=== PATIENT | male | born 1935 | race Caucasian/White ===

== ENCOUNTER 2017-09-29 08:25 | Emergency (ER) | payer MEDICARE, OTHER, SELFPAY ==
[2017-09-29 08:37] VITALS: BP 179/88; PULSE 95; RESP 14; TEMP 37.3; O2SAT 95
--- NOTE | 2017-09-29 08:47 | ED.GENADUL_ITS ---
Disposition Clinical Impression: Epistaxis Disposition: HOME Condition: Good Instructions: Nosebleed (ED) Additional Instructions: If you do have recurrence of bleeding please apply pressure to the nose. If the bleeding does not resolve after 15-20 minutes please return immediately for reevaluation. If you notice any worsening of your symptoms, or any new symptoms such as vomiting, diarrhea, fever, chills, shortness of breath, chest pain, numbness, weakness, or fainting , please return immediately to the emergency department for reevaluation. Please follow up with your primary care provider as soon as possible for reassessment and reevaluation. As always, it was a pleasure participating in your medical care today. Referrals: Cami Burleson MD, [place] [Primary Care Provider] - Medical Decision Making - Medical Decision Making This is an 82-year-old male who takes aspirin who bumped his nose on a bureau while getting out of bed. There is a mild trauma however he had some notable bleeding after this event. It occurred 3 hours prior to arrival. Due to continued mild bleeding they did come to the ER for evaluation however on presentation the bleeding had stopped. Currently the patient demonstrates no signs of severe trauma, no deformity of the nose, no active bleeding or signs of airway compromise. Will have an observation period of 15-20 minutes, and if there continues to be no bleeding and the patient will be discharged home with close follow-up. With no signs of hypotension, notable tachycardia, or signs of volume depletion I feel that he would be stable for discharge home. After an observation. There is no continued bleeding. Patient will be discharged home with close follow-up. We discussed red flags first return the patient family understand. I have extensively reviewed the treatment plan and discharge instructions with the patient. I have addressed all patient concerns at this time. The patient was made aware of what symptoms to monitor for that would warrant a return to the emergency department. Discussed the plan with the patient, they demonstrate verbal understanding and agreement with our assessment and plan at this time. History of Present Illness - General Chief complaint: Epistaxis Stated complaint: BLOODY NOSE Time Seen by Provider: 09/29/17 08:45 - History of Present Illness Initial comments: This is an 82-year-old male with a past medical history of Parkinson's , diabetes, hypertension, hypercholesterol and past surgical history of an appendectomy. He takes a daily aspirin. He presents today for evaluation of right-sided nosebleed. 3 hours prior to arrival he bumped the right side of his nose on a cabinet while getting up from bed, he had notable bleeding after this. They packed the nose with cotton swabs, and applied pressure. They came to the ER for further evaluation however upon arrival the bleeding had completely stopped. The patient denies coughing up any clots or the sensation of swallowing blood. He denies any headache, or loss of consciousness. He denies any pain in his nose. Patient denies any chest pain shortness of breath vision changes vomiting diarrhea numbness tingling or weakness. He has no other complaints at this time he denies any pertinent family history. He denies any IV or illicit drug use. - Related Data Allopurinol 1 tab PO DAILY tab-cap 07/13/12 Doxazosin Mesylate [Cardura] 1 tab PO HS tab-cap 07/13/12 Metformin HCl 1 tab PO BID tab-cap 07/13/12 Aspirin [Aspir 81] 1 tab PO DAILY 08/02/13 Finasteride 1 tab PO DAILY 08/02/13 Simvastatin 40 mg PO DAILY #90 tab-cap 09/09/14 Carvedilol [Coreg] 0.5 tab PO BID #180 tab-cap 09/26/14 Losartan [Cozaar] 100 mg PO DAILY #90 tab-cap 09/26/14 Carbidopa/Levodopa CR [Sinemet Cr 50/200 Tablet] 0 PO TID #450 tab-cap 07/05/17 Nystatin Powder 60 GM [Mycostatin Powder] 0 TP BID #60 gm 07/05/17 Ducolax PO DAILY 07/21/17 Carbidopa/Levodopa [Carbidopa-Levo 25-100 mg Odt] 1 each PO BID 08/30/17 Indica 08/30/17 Indica 1 drop SL BID 08/30/17 Cyclobenzaprine HCl 1 tab PO TID PRN #30 tab-cap 09/08/17 Allergies Allergy/AdvReac Type Severity Reaction Status Date / Time No Known Allergies Allergy Unverified 09/29/17 08:47 Review of Systems Other: 10 point review of systems was performed, pertinent positives and negatives are noted in the history of present illness. General Exam - Other Other exam information: 1.Const: Well-nourished, Well-developed, appearing stated age 2.Eyes: PERRL, no conjunctival injection, and symmetrical lids. 3.ENT: Atraumatic external nose and ears. Moist MM. Neck: Symmetric, trachea midline, No thyromegaly. There is no evidence of raccoon eyes, rome sign, CSF rhinorrhea, mastoid tenderness, cranial crepitus, hemotympanum, exophthalmos , or hyphema. Patient demonstrates intact dentition with no signs of tooth avulsion or fracture, no signs of jaw deformity, no evidence of a LeFort's fracture, with an intact palate, nose and orbital region. There is no evidence of a nasal septal hematoma. No proptosis. Jaw closes symmetrically. Airway is clear. Patient does demonstrate a small erythematous spot on the right side of his nose, and just 2 cm distal to the nasal bridge. Evaluation of the nose itself demonstrates no bleeding, no deformity. No tenderness on palpation. No blood in the posterior oropharynx. No signs of airway compromise. No active bleeding. 4.CVS: +S1/S2, No murmurs or gallops. Peripheral pulses 2+ and equal in all extremities. Brisk capillary refill in all extremities. 5.RESP: Unlabored respiratory effort. Clear to auscultation bilaterally. No wheezes rales or rhonchi 6.GI: Soft, Nontender/Nondistended, No hepatosplenomegaly. No guarding or rebound. 7.MSK: Normocephalic/Atraumatic, Extremities w/o deformity or ttp No cyanosis or clubbing, Normal movement of all extremities 8.Skin: Warm, Dry. No rashes or lesions. 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 Sensation grossly intact, no focal neurologic deficits. 10.Psych: (AAO) x3. Appropriate mood and affect Course Vital Signs - 24 hr 09/29/17 08:37 Temperature 37.3 C Pulse 95 H Respiratory 14 Rate Blood Pressure 179/88 Pulse Oximetry 95
== END 2017-09-29 09:19 | disposition home or self-care (01) ==
PROVIDERS: Emergency Provider Student in an Organized Health Care Education/Training Program; PCP Family Medicine
DX: R04.0 Epistaxis (principal); W22.8XXA Striking against or struck by other objects, initial encounter; E11.9 Type 2 diabetes mellitus without complications; Z79.84 Long term (current) use of oral hypoglycemic drugs; I10 Essential (primary) hypertension; G20 Parkinson's disease
CPT/HCPCS: 99281

== ENCOUNTER 2017-10-08 14:22 | Emergency (ER) | payer MEDICARE, OTHER, SELFPAY ==
[2017-10-08] VITALS (8 sets, daily range): BP systolic 143–175; BP diastolic 82–97; PULSE 75–80; RESP 15–20; TEMP 36.7; O2SAT 94–97
--- NOTE | 2017-10-08 14:29 | DI.RPTCT_ITS ---
SYMPTOMS/DIAGNOSIS: SPEECH DIFFICULTIES NONCONTRAST HEAD CT: There is mild to moderate atrophy consistent with the patient's age. There is an area of CSF attenuation in the right basal ganglia which could represent a diverticulum. No intracranial hemorrhage, mass or acute infarct is seen. The ventricles are normal in size. No skull fracture is seen. There is mucosal thickening at the floors of both maxillary sinuses. The mastoid air cells appear clear. IMPRESSION: No acute abnormality.
--- NOTE | 2017-10-08 14:31 | ED.GENADUL ---
Disposition Clinical Impression: Confusion, Difficulty with speech Disposition: HOME Condition: Stable Instructions: Acute Delirium (ED) Additional Instructions: follow up with your primary care provider this week if you have weakness on one side of the body, changes in vision, chest pain or difficulty breathing return to the emergency department Medical Decision Making - Lab Data Results reviewed for labs ordered during visit: Yes - EKG Data -: EKG Interpreted by Me EKG shows normal: sinus rhythm, ST-T waves Rate: normal 10/08/17 14:40 left axis, left bundle branch block - Radiology Data Radiology results: report reviewed, image reviewed - Medical Decision Making Patient here with confusion, speech findings difficulty and mild dysarthria that was noticed upon waking up from nap. given last known normal was 10am and is 4.5 hours from last known normal is not tpa candidate. Will obtian CT head and also CTA to eval for possible dissection vs thrombus, and evaluate for electrolyte abnormalities pt is now at his baseline, without any speech problems. Remains stable. Is now ambulating using a walker at his baseline. labs and imaging show no acute findigns, can't exclude carotid stenosis per report. He remains at his baseline. Unclear if this was moementary confusion after waking up or TIA. Recommended observation admission for TIA? but patient and family declined at this time and he has capacity to make his own decisions. Will d/c home and return precutions given - Differential Diagnosis cva, tia, uti, electrolyte abnormality, transient global amenesia History of Present Illness - General Stated complaint: UNKNOWN Time Seen by Provider: 10/08/17 14:23 Source: family Mode of arrival: EMS Limitations: altered mental status - History of Present Illness Initial comments: 82 yo male with hx of parkinson's, htn, who comes in with family for altered speech and altered mental status. The states that he woke up this morning and seemed to be in his usual state of health. He took a nap around 10am and then his went to wake him and he was confused and had incomprehensible speech so they drove him here. the patient is not sure what time of the day is and is slow to respond with slight slurring of words. He has no focal motor or sensation deficits, no facial droops. He thinks it is november. his NIH score on my exam is 3 (1 for dysarthria,, 1 for mild to moderate aphasia, 1 for not knowing month) MD Complaint: confusion -: unknown Improves with: none Worsens with: none Treatments Prior to Arrival: none - Related Data Allopurinol 1 tab PO DAILY tab-cap 07/13/12 Doxazosin Mesylate [Cardura] 1 tab PO HS tab-cap 07/13/12 Metformin HCl 1 tab PO BID tab-cap 07/13/12 Aspirin [Aspir 81] 1 tab PO DAILY 08/02/13 Finasteride 1 tab PO DAILY 08/02/13 Simvastatin 40 mg PO DAILY #90 tab-cap 09/09/14 Carvedilol [Coreg] 0.5 tab PO BID #180 tab-cap 09/26/14 Losartan [Cozaar] 100 mg PO DAILY #90 tab-cap 09/26/14 Carbidopa/Levodopa CR [Sinemet Cr 50/200 Tablet] 0 PO TID #450 tab-cap 07/05/17 Nystatin Powder 60 GM [Mycostatin Powder] 0 TP BID #60 gm 07/05/17 Ducolax PO DAILY 07/21/17 Carbidopa/Levodopa [Carbidopa-Levo 25-100 mg Odt] 1 each PO BID 08/30/17 Indica 08/30/17 Indica 1 drop SL BID 08/30/17 Allergies Allergy/AdvReac Type Severity Reaction Status Date / Time No Known Allergies Allergy Unverified 10/08/17 14:39 Review of Systems Constitutional: denies: fever ENT: epistaxis Respiratory: denies: shortness of breath Cardiovascular: denies: chest pain Gastrointestinal: denies: abdominal pain, nausea, vomiting Neurological: denies: headache Comment: All other systems reviewed and negative Past Medical History - Past Medical History Medical history: hypertension parkinson's - Social History Alcohol use: none Drug use: none General Exam - General Limitations: altered mental status General appearance: alert, in no apparent distress - Head Head exam: Present: atraumatic - Eye Eye exam: Present: normal apperance, PERRL, EOMI - ENT ENT exam: Present: mucous membranes moist - Neck Neck exam: Present: normal inspection - Respiratory Respiratory exam: Absent: respiratory distress - Cardiovascular Cardiovascular Exam: Present: regular rate - GI/Abdominal GI/Abdominal exam: Present: soft. Absent: tenderness - Neurological Exam Neurological exam: Present: alert, other (see hpi) - Psychiatric Psychiatric exam: Present: normal affect - Skin Skin exam: Present: warm
--- NOTE | 2017-10-08 14:33 | DI.RPTCT_ITS ---
SYMPTOMS/DIAGNOSIS: STROKE LIKE SYMPTOMS CTA OF THE HEAD AND NECK: CT angiography was performed with multi slice acquisition and multi planar and 3D reconstruction. The exam is somewhat limited by motion. The vessels are well opacified. There is no significant carotid or vertebral stenosis. The [place] vasculature appears intact. No occlusion, significant stenosis or aneurysm is seen. Degenerative changes are seen in the cervical spine. IMPRESSION: No evidence of significant stenosis, dissection or occlusion in the head or neck. No evidence of aneurysm.
[2017-10-08 14:43] LABS: Abs Immature Grans 0.05 k/cumm (0.0-0.09); Absolute Basophil Count 0.02 k/cumm (0.0-0.2); Absolute Eosinophil Count 0.08 k/cumm (0.0-0.7); Absolute Lymphocyte Count 1.11 k/cumm (1.2-3.4); Absolute Monocyte Count 0.66 k/cumm (0.11-0.7); Absolute Neutrophil Count 4.58 k/cumm (1.2-6.7); Basophils % 0.3; Eosinophils % 1.2; HCT 39.5 % (40.0-50.0); HGB 13.3 g/dL (13.5-17.5); Immature Grans % 0.8; Lymphocytes % 17.1; Mean Corp. HGB Concentration 33.7 g/dL (32.0-36.0); Mean Corpuscular Hemoglobin 31.1 pg (27.0-33.0); Mean Corpuscular Volume 92.5 fL (80-95); Mean Platelet Volume 10.9 fL (8.0-11.0); Monocytes % 10.2; Neutrophils % 70.4; Platelet Count 224 x1000/uL (130-400); RBC 4.27 m/cumm (4.50-6.00); RBC Distribution Width 12.8 % (11.8-14.1)
[2017-10-08 14:52] LABS: INR 1.1 (1.0-3.5); Prothrombin Time 10.6 sec (9.3-10.8)
[2017-10-08 14:57] LABS: ALT 10 U/L (12-78); AST 22 U/L (15-37); Albumin 3.9 g/dL (3.4-5.0); Alkaline Phosphatase 78 U/L (46-116); Anion Gap 8.1 mmol/L (3-11); BUN 26 mg/dL (7-18); Bilirubin, Total 0.3 mg/dL (0.2-1.0); CO2 28.9 mmol/L (21.0-32.0); CREATININE 1.22 mg/dL (0.70-1.30); Calcium 9.2 mg/dL (8.5-10.1); Chloride 103 mmol/L (98-107); Estimated GFR 57.15 (mL/min/1.73m2); Glucose 88 mg/dL (70-100); Magnesium 1.9 mg/dL (1.8-2.4); Sodium 140 mmol/L (136-145); Total Protein 8.4 g/dL (6.4-8.2)
[2017-10-08 14:59] LABS: Troponin I < 0.02 ng/mL (0.00-0.06)
--- NOTE | 2017-10-08 15:01 | DI.VRAD_ITS ---
EXAM: CT Head Without Intravenous Contrast EXAM DATE/TIME: 10/08/2017 2:30 PM CLINICAL HISTORY: 82 years old, male; Speech disturbance TECHNIQUE: Axial computed tomography images of the head/brain without intravenous contrast. All CT scans at this facility use at least one of these dose optimization techniques: automated exposure control; mA and/or kV adjustment per patient size (includes targeted exams where dose is matched to clinical indication); or iterative reconstruction. Coronal and sagittal reformatted images were created and reviewed. COMPARISON: No relevant prior studies available. FINDINGS: Brain: No definite acute brain parenchymal abnormality. There is focal area of low attenuation at the inferolateral margin of left lentiform nucleus and extending toward the insular cortex which could be due to a prior infarct or a very large dilated type I perivascular space. There is a smaller low-attenuation lesion at the same level on the contralateral side which is likely due to a dilated type I perivascular space. There is diffuse brain atrophy. No intracranial hemorrhage. Ventricles: No hydrocephalus when allowing for the atrophy. Bones/joints: No calvarial fracture. Sinuses: There is multifocal mucoperiosteal thickening, but no fluid in the visualized paranasal sinuses. Mastoid air cells: The mastoid air cells are aerated. Soft tissues: Normal. IMPRESSION: No definite acute intracranial abnormality. Dictated and Authenticated by: Kristopher Cox MD. Ordering:KAREN MATTSON MD
--- NOTE | 2017-10-08 15:32 | DI.VRAD_ITS ---
EXAM: CT Angiography Head With Intravenous Contrast CLINICAL HISTORY: 82 years old, male; Speech disturbance TECHNIQUE: Axial computed tomographic angiography images of the head with intravenous contrast using CT angiography protocol. All CT scans at this facility use at least one of these dose optimization techniques: automated exposure control; mA and/or kV adjustment per patient size (includes targeted exams where dose is matched to clinical indication); or iterative reconstruction. 3D and MIP reconstructed images were created and reviewed. CONTRAST: 100 mL of OMNIPAQUE administered intravenously. COMPARISON: CT HEAD 10/08/2017 FINDINGS: Right internal carotid artery: No stenosis, occlusion, or aneurysm. Right anterior cerebral artery: No stenosis, occlusion, or aneurysm. Right middle cerebral artery: No stenosis, occlusion, or aneurysm. Right posterior cerebral artery: No stenosis, occlusion, or aneurysm. Right vertebral artery: No stenosis, occlusion, or aneurysm. Left internal carotid artery: No stenosis, occlusion, or aneurysm. Left anterior cerebral artery: No stenosis, occlusion, or aneurysm. Left middle cerebral artery: No stenosis, occlusion, or aneurysm. Left posterior cerebral artery: No stenosis, occlusion, or aneurysm. Left vertebral artery: No stenosis, occlusion, or aneurysm. Basilar artery: No stenosis, occlusion, or aneurysm. IMPRESSION: No stenosis, occlusion, or aneurysm. EXAM: CT Angiography Neck With Intravenous Contrast CLINICAL HISTORY: 82 years old, male; Speech disturbance TECHNIQUE: Axial computed tomographic angiography images of the neck with intravenous contrast using CT angiography protocol. All CT scans at this facility use at least one of these dose optimization techniques: automated exposure control; mA and/or kV adjustment per patient size (includes targeted exams where dose is matched to clinical indication); or iterative reconstruction. 3D and MIP reconstructed images were created and reviewed. CONTRAST: 100 mL of OMNIPAQUE administered intravenously. 100 mL of OMNIPAQUE administered intravenously. COMPARISON: No relevant prior studies available. FINDINGS: Limitations: The study is technically limited by motion artifact. VASCULATURE: Right common carotid artery: No stenosis, occlusion, or dissection. Right internal carotid artery: Cannot adequately evaluate due to blurring from motion artifact. Right external carotid artery: Cannot adequately evaluate due to blurring from motion artifact. Right vertebral artery: No stenosis, occlusion, or dissection. Left common carotid artery: No stenosis, occlusion, or dissection. Left internal carotid artery: Cannot adequately evaluate due to blurring from motion artifact. Left external carotid artery: Cannot adequately evaluate due to blurring from motion artifact. Left vertebral artery: No stenosis, occlusion, or dissection. NECK: Bones/joints: Multilevel degenerative changes present in the cervical spine. Soft tissues: No adenopathy. CAROTID STENOSIS REFERENCE USING NASCET CRITERIA: % ICA stenosis = (1 - narrowest ICA diameter/diameter of distal cervical ICA) x 100. Mild - <50% stenosis. Moderate - 50-69% stenosis. Severe - 70-94% stenosis. Near occlusion - 95-99% stenosis. Occluded - 100% stenosis. IMPRESSION: 1. Cannot adequately evaluate for carotid stenosis due to motion artifact. 2. No vertebral stenosis, occlusion, or dissection. Dictated and Authenticated by: Kristopher Cox MD. Ordering:KAREN MATTSON MD
[2017-10-08] MEDS: Omnipaque 350 MG/ML 100 ML BTL IJ (15:57)
[2017-10-08 15:59] LABS: Bilirubin Negative (Negative); Blood Negative (Negative); Clarity Sl Cloudy; Glucose Negative (Negative); Ketones Negative (Negative); Leukocyte Esterase Negative (Negative); Nitrite Negative (Negative); Specific Gravity 1.015 (1.005-1.025); Urobilinogen 0.2 EU/dL (Up TO 0.2)
[2017-10-08 16:13] LABS: Bacteria Rare HPF (Negative); Crystals Negative HPF (Negative); Epithelial Cells Few HPF (Negative); Other Cells Few Renal (Negative); RBC 0-2 (0-2)
[2017-10-08 16:14] LABS: C & S Indicated? No; Mucus Trace (Negative)
--- NOTE | 2017-10-10 09:24 | CMPROGNOTE_ITS ---
Care Management Progress Note 10/10-Dr. Marino requested assistance with a PCP (Sarah Beth) f/u this week for confusion. Referral faxed to [facility] this am.
== END 2017-10-08 16:21 | disposition home or self-care (01) ==
PROVIDERS: Emergency Provider Emergency Medicine; PCP Family Medicine
DX: R41.0 Disorientation, unspecified (principal); R47.01 Aphasia; I10 Essential (primary) hypertension; G20 Parkinson's disease
CPT/HCPCS: 70450; 70496; 70498; 93005; 99285 ×2; 36415; 80053; 81003; 81015; 83735; 84484; 85025; 85610; 93010; J3490

== ENCOUNTER → 2017-11-17 10:47 | Outpatient (BNVA) | payer MEDICARE, OTHER, SELFPAY | PROVIDERS: Visit Provider Psychiatry & Neurology Neurology | DX: G20 Parkinson's disease (principal); G47.10 Hypersomnia, unspecified; I10 Essential (primary) hypertension; E11.40 Type 2 diabetes mellitus with diabetic neuropathy, unspecified; Z79.84 Long term (current) use of oral hypoglycemic drugs | CPT/HCPCS: 99214 ==